=== PATIENT | female | born 1960 | race Caucasian/White ===

== ENCOUNTER 2020-08-31 15:14 | Inpatient (IN) | END 2020-08-31 15:18 | disposition home or self-care (01) | DRG 179 | LOC: ICU 15:14 | PROVIDERS: ADMIT Obstetrics & Gynecology Obstetrics; ATTEND Obstetrics & Gynecology Obstetrics | DX: R07.89 Other chest pain; J15.1 Pneumonia due to Pseudomonas; R06.02 Shortness of breath ==